=== PATIENT | male | born 1960 | race Caucasian/White ===

== ENCOUNTER 2021-02-28 07:29 | Observation (INO) ==
[~2021-02-28 07:29] MED LIST: CYTARABINE IVPB SCH; Enoxaparin 40 MG/0.4 ML SYR SUBCUT SCH; METHYLPREDNISOLONE IV SCH; NS 0.9% IV SCH; NS 0.9% IVPB SCH; Ondansetron 4 mg VIAL 2 MG/ML 2 ml VIAL IV PRN; Prochlorperazine 5 mg/ml 2 ml VIAL (10 mg) IV PRN
[2021-02-28] MEDS ORDERED: DEXAMETHASONE 0.1% BOTH EYES SCH (12:00)
[2021-02-28] MEDS ORDERED: OPTH BOTH EYES SCH (12:00)
[2021-02-28] MEDS: prednisoLONE 1% OPHTH.SUSP 5 ML OPHTH.SUSP BOTH EYES SCH ×2 (15:02→17:50)
[2021-02-28] MEDS: DEXAMETHASONE SODIUM PHOSPHATE BOTH EYES SCH ×2 (15:02→17:50)
[2021-02-28] MEDS ORDERED: CYTARABINE IVPB ONE (20:00)
[2021-02-28] MEDS ORDERED: NS 0.9% IVPB ONE (20:00)
[2021-02-28] MEDS ORDERED: Enoxaparin 40 MG/0.4 ML SYR SUBCUT SCH (21:00)
[2021-02-28] MEDS: OPTH BOTH EYES SCH (23:55)
[2021-02-28] MEDS: DEXAMETHASONE 0.1% BOTH EYES SCH (23:55)
[2021-03-01 01:10] LABS: Hematocrit 29 % (42-52); Hemoglobin 9.9 g/dL (14.0-18.0); Mean Corpuscular HGB Conc 35 g/dL (31-36); Mean Corpuscular Hemoglobin 31 pg (27-31); Mean Corpuscular Volume 90 fL (80-94); Platelet Count 273 10^3/uL (150-450); Red Cell Distribution Width 13 % (10-15); White Blood Count 24.3 10^3/uL (3.5-10.8)
[2021-03-01 01:50] LABS: ABS Lymphocytes 0.1 10^3/ul (1.0-4.8); ABS Monocytes 0.3 10^3/ul (0-0.8); ABS Neutrophils 23.8 10^3/ul (1.5-7.7); Lymphocyte % 0.6 %
[2021-03-01 02:28] LABS: Calcium 8.4 mg/dL (8.6-10.3); EGFR African American 85.7 (>60); EGFR Non-African American 70.8 (>60); Magnesium 1.8 mg/dL (1.9-2.7); Potassium 4.1 mmol/L (3.5-5.0)
[2021-03-01] MEDS: DEXAMETHASONE 0.1% BOTH EYES SCH ×2 (05:57→12:43)
[2021-03-01] MEDS: OPTH BOTH EYES SCH ×2 (05:57→12:43)
[2021-03-01 06:32] LABS: Albumin 3.5 g/dL (3.2-5.2); Albumin/Globulin Ratio 1.8 (1-3); Calcium 8.2 mg/dL (8.6-10.3); EGFR African American 82.9 (>60); EGFR Non-African American 68.5 (>60); Potassium 4.2 mmol/L (3.5-5.0); Total Bilirubin 0.4 mg/dL (0.2-1.0); Total Protein 5.5 g/dL (6.4-8.9)
[2021-03-01] MEDS ORDERED: MULTIVITAMINS PO SCH (09:00)
[2021-03-01] MEDS ORDERED: NS 0.9% IV ONE (09:00)
[2021-03-01] MEDS ORDERED: CHOLECALCIFEROL 1000 UNIT PO SCH (09:00)
[2021-03-01] MEDS ORDERED: METHYLPREDNISOLONE IV ONE (09:00)
[2021-03-01] MEDS ORDERED: MAGNESIUM PO SCH (09:00)
[2021-03-01] MEDS ORDERED: TURMERIC PO ONE (09:00)
[2021-03-01] MEDS ORDERED: VALACYCLOVIR 500 MG PO SCH (09:00)
[2021-03-01] MEDS ORDERED: Sulfamethox/Trimethoprim DS TAB 800/160 mg PO SCH (09:00)
[2021-03-01] MEDS ORDERED: MINERALS PO SCH (09:00)
[2021-03-01] MEDS ORDERED: CALCIUM PO SCH (09:00)
[2021-03-01] MEDS ORDERED: MAGNESIUM CITRATE 150 MG PO SCH (09:00)
[2021-03-01] MEDS ORDERED: ZINC PO SCH (09:00)
[2021-03-01] MEDS: CMCS:Febuxostat 40 mg TAB (NF) PO SCH ×2 (09:02→09:06)
[2021-03-01 11:18] VITALS: BP 109/63
[2021-03-01 13:19] LABS: Magnesium 2.2 mg/dL (1.9-2.7)
[2021-03-01 13:32] LABS: TSH Ultra Thyroid Stim Horm 0.81 mcIU/mL (0.34-5.60)
== END 2021-03-01 16:57 | disposition home or self-care (01) ==
LOC: SSU 07:29 → CHOA 07:29
PROVIDERS: ADMIT Internal Medicine Hematology & Oncology; ATTEND Internal Medicine Hematology & Oncology

== ENCOUNTER 2021-03-20 12:40 | Observation (INO) ==
[2021-03-20] MEDS: DEXAMETHASONE 0.1% BOTH EYES SCH ×2 (16:57→21:26)
[2021-03-20] MEDS: OPTH BOTH EYES SCH ×2 (16:57→21:26)
[2021-03-20] MEDS ORDERED: CYTARABINE IVPB ONE (20:00)
[2021-03-20] MEDS ORDERED: NS 0.9% IVPB ONE (20:00)
[2021-03-20] MEDS ORDERED: Sulfamethox/Trimethoprim DS TAB 800/160 mg PO SCH (21:00)
[2021-03-21] MEDS ORDERED: methylPREDNISolone 125 mg 2 ML VIAL ONE (07:42)
[2021-03-21] MEDS: OPTH BOTH EYES SCH (07:53)
[2021-03-21] MEDS: DEXAMETHASONE 0.1% BOTH EYES SCH (07:53)
[2021-03-21] MEDS ORDERED: NS 0.9% IV ONE (08:00)
[2021-03-21] MEDS ORDERED: METHYLPREDNISOLONE IV ONE (08:00)
[2021-03-21 09:33] VITALS: BP 93/60
== END 2021-03-21 10:58 | disposition home or self-care (01) ==
LOC: INTOOBSV 12:40 → SSU 12:40
PROVIDERS: ADMIT Internal Medicine Hematology & Oncology; ATTEND Internal Medicine Hematology & Oncology

== ENCOUNTER 2021-04-10 07:41 | Observation (INO) ==
[~2021-04-10 07:41] MED LIST changes: -Enoxaparin 40 MG/0.4 ML SYR SUBCUT SCH; -Ondansetron 4 mg VIAL 2 MG/ML 2 ml VIAL IV PRN; -Prochlorperazine 5 mg/ml 2 ml VIAL (10 mg) IV PRN
[2021-04-10] MEDS: OPTH BOTH EYES SCH ×2 (18:00→23:45)
[2021-04-10] MEDS: DEXAMETHASONE 0.1% BOTH EYES SCH ×2 (18:00→23:45)
[2021-04-10] MEDS ORDERED: CYTARABINE IVPB ONE (20:00)
[2021-04-10] MEDS ORDERED: NS 0.9% IVPB ONE (20:00)
[2021-04-10] MEDS: PREDNISOLONE 0.12% BOTH EYES SCH (23:00)
[2021-04-10] MEDS ORDERED: Sulfamethox/Trimethoprim DS TAB 800/160 mg PO SCH (23:30)
[2021-04-11 06:02] LABS: ABS Lymphocytes 0.1 10^3/ul (1.0-4.8); ABS Monocytes 0.2 10^3/ul (0-0.8); ABS Neutrophils 18.1 10^3/ul (1.5-7.7); Hematocrit 27 % (42-52); Hemoglobin 9.3 g/dL (14.0-18.0); Lymphocyte % 0.5 %; Mean Corpuscular HGB Conc 34 g/dL (31-36); Mean Corpuscular Hemoglobin 33 pg (27-31); Mean Corpuscular Volume 97 fL (80-94); Mean Platelet Volume 8.7 fL (7.4-10.4); Platelet Count 189 10^3/uL (150-450); Red Cell Distribution Width 23 % (10-15); White Blood Count 18.4 10^3/uL (3.5-10.8)
[2021-04-11 06:26] LABS: Albumin 3.6 g/dL (3.2-5.2); Albumin/Globulin Ratio 1.9 (1-3); Calcium 8.4 mg/dL (8.6-10.3); Globulin 1.9 g/dL (2-4); Total Bilirubin 0.4 mg/dL (0.2-1.0); Total Protein 5.5 g/dL (6.4-8.9)
[2021-04-11] MEDS ORDERED: METHYLPREDNISOLONE IV ONE (08:00)
[2021-04-11] MEDS ORDERED: NS 0.9% IV ONE (08:00)
[2021-04-11] MEDS: DEXAMETHASONE 0.1% BOTH EYES SCH (09:42)
[2021-04-11] MEDS: OPTH BOTH EYES SCH (09:42)
[2021-04-11 10:21] VITALS: BP 106/55
[2021-04-11] MEDS ORDERED: Ondansetron ODT 4 mg TAB 4 MG TAB SL ONE (10:21)
== END 2021-04-11 12:27 | disposition home or self-care (01) ==
LOC: MEDTELE 07:41 → CHOA 07:41
PROVIDERS: ADMIT Internal Medicine Hematology & Oncology; ATTEND Internal Medicine Hematology & Oncology

== ENCOUNTER 2022-02-12 16:20 | Inpatient (IN) ==
[2022-02-12 17:26] LABS: Hematocrit 21 % (42-52); Hemoglobin 7.5 g/dL (14.0-18.0); Mean Corpuscular HGB Conc 35 g/dL (31-36); Mean Corpuscular Hemoglobin 35 pg (27-31); Mean Corpuscular Volume 101 fL (80-94); Mean Platelet Volume 9.7 fL (7.4-10.4); Platelet Count 28 10^3/uL (150-450); Red Blood Count 2.11 10^6 /uL (4.18-5.48); Red Cell Distribution Width 17 % (10-15); White Blood Count 0.2 10^3/uL (3.5-10.8)
[2022-02-12 17:36] LABS: Activated Partial Thrombo Time 28.3 seconds (26.0-38.0); INR 1.06 (0.89-1.11)
[2022-02-12 17:38] LABS: Urine Appearance Clear; Urine Bilirubin Negative (Negative); Urine Blood Negative (Negative); Urine Color Yellow; Urine Glucose Negative (Negative); Urine Ketones Negative (Negative); Urine Nitrite Negative (Negative); Urine Protein Negative (Negative); Urine Specific Gravity 1.015 (1.005-1.030); Urine Urobilinogen 0.2 (Negative) (Negative); Urine pH 6.5 (5.0-9.0)
[2022-02-12 17:40] LABS: ABS Monocytes 0.1 10^3/ul (0-0.8); Eosinophil % 1.1 %; Lymphocyte % 11.5 %; Nucleated Red Blood Cells % 0.9
[2022-02-12 17:42] LABS: Albumin 3.9 g/dL (3.2-5.2); Albumin/Globulin Ratio 2.3 (1-3); C Reactive Protein 35.42 mg/L (<8.01); Calcium 8.7 mg/dL (8.6-10.3); Globulin 1.7 g/dL (2-4); Potassium 3.9 mmol/L (3.5-5.0); Total Bilirubin 0.7 mg/dL (0.2-1.0); Total Protein 5.6 g/dL (6.4-8.9); eGFR CKD-EPI 100.2 (>60)
[2022-02-12] MEDS ORDERED: Cefepime 2 GM in Dextrose 2 GM/50 ML BAG IV ONE (18:22)
[2022-02-12] MEDS ORDERED: Vancomycin 1,000 MG VIAL IVPB SCH (19:00)
[2022-02-12] MEDS ORDERED: Vancomycin 1500 MG IV - x ONCE IVPB ONE (19:00)
[2022-02-12 19:13] LABS: High Sensitivity Troponin 1 Hr 11 pg/mL (<20)
[2022-02-12] MEDS ORDERED: Cefepime ADVAN 1 GM in NS 0.9% 50 ML 50 ML IVPB SCH (23:45)
[2022-02-13] MEDS ORDERED: Vancomycin per Pharmacy 1 EA NOTE FOLLOW UP SCH (07:00)
[2022-02-13] MEDS ORDERED: Cefepime 1 GM in Dextrose 1 GM/50 ML BAG IV SCH (07:30)
[2022-02-13] MEDS ORDERED: Vancomycin 1000 MG in NS 0.9% 250 ML IVPB SCH (08:00)
[2022-02-13] MEDS: Cefepime 2 GM in Dextrose 2 GM/50 ML BAG IV SCH ×3 (09:03→21:21)
[2022-02-13] MEDS: Vancomycin 1,500 MG in NS 0.9% 250 ml 250 ML IVPB SCH ×2 (09:03→20:00)
[2022-02-13] MEDS ORDERED: Sulfamethox/Trimethoprim DS TAB 800/160 mg PO SCH (12:00)
[2022-02-13] MEDS ORDERED: Sulfamethox/Trimethoprim DS TAB 800/160 mg ONE (12:39)
[2022-02-14] MEDS: Cefepime 2 GM in Dextrose 2 GM/50 ML BAG IV SCH (06:05)
[2022-02-14] MEDS ORDERED: Vancomycin Trough Check NOTE FOLLOW UP ONE (07:30)
[2022-02-14] MEDS ORDERED: LACTOBACILLUS ACIDOPHILUS PO SCH (09:00)
[2022-02-14] MEDS ORDERED: BILLION CELL PO SCH (09:00)
[2022-02-14] MEDS: Vancomycin 1,500 MG in NS 0.9% 250 ml 250 ML IVPB SCH (09:53)
[2022-02-14 10:47] LABS: ABS Monocytes 0.2 10^3/ul (0-0.8); ABS Neutrophils 0.2 10^3/ul (1.5-7.7); Eosinophil % 0.1 %; Hematocrit 20 % (42-52); Hemoglobin 6.9 g/dL (14.0-18.0); Lymphocyte % 8.1 %; Mean Corpuscular HGB Conc 35 g/dL (31-36); Mean Corpuscular Hemoglobin 36 pg (27-31); Mean Corpuscular Volume 102 fL (80-94); Mean Platelet Volume 10.2 fL (7.4-10.4); Platelet Count 28 10^3/uL (150-450); Red Blood Count 1.92 10^6 /uL (4.18-5.48); Red Cell Distribution Width 18 % (10-15); White Blood Count 0.4 10^3/uL (3.5-10.8)
[2022-02-14 17:34] VITALS: BP 104/54
[2022-02-14] MEDS ORDERED: Sulfamethox/Trimethoprim DS TAB 800/160 mg PO SCH (22:00)
== END 2022-02-14 16:34 | disposition home or self-care (01) | DRG 660 ==
LOC: ED 16:20 → MEDTELE 02-13 06:21 → SUATTDRO 02-13 07:05 → MEDTELE 02-13 07:05
PROVIDERS: ADMIT Internal Medicine; ATTEND Student in an Organized Health Care Education/Training Program

== ENCOUNTER 2023-01-16 17:18 | Inpatient (IN) ==
[2023-01-16 17:47] LABS: ABS Lymphocytes 1.1 10^3/uL (1.0-4.8); ABS Monocytes 0.6 10^3/uL (0.0-1.1); ABS Neutrophils 3.5 10^3/uL (1.5-7.6); Eosinophil % 0.7 %; Hematocrit 30.4 % (38-53); Hemoglobin 10.9 g/dL (13.2-16.3); Lymphocyte % 20.8 %; Mean Corpuscular Hemoglobin 37.4 pg (27-33); Mean Corpuscular Hgb Conc 35.9 g/dL (31-36); Mean Corpuscular Volume 104.3 fL (80-97); Mean Platelet Volume 8.2 fL (7.5-11.2); Nucleated Red Blood Cells % 0.1 /100 WBC (0.0-0.4); Platelet Count 100 10^3/uL (150-450); Red Blood Count 2.91 10^6/uL (4.06-5.63); Red Cell Distribution Width 14.7 % (12-17); White Blood Count 5.2 10^3/uL (3.6-10.2)
[2023-01-16 18:02] LABS: INR 1.04 (0.88-1.18)
[2023-01-16 18:14] LABS: Albumin 4.5 g/dL (3.2-5.2); Albumin/Globulin Ratio 2.6 (1-3); Calcium 9.7 mg/dL (8.6-10.3); Creatinine, Serum 1.07 mg/dL (0.67-1.17); Globulin 1.7 g/dL (2-4); Potassium 4.6 mmol/L (3.5-5.0); Total Bilirubin 0.3 mg/dL (0.2-1.0); Total Protein 6.2 g/dL (6.4-8.9); eGFR CKD-EPI 77.5 (>60)
[2023-01-16 19:43] LABS: High Sensitivity Troponin 1 Hr 3078 pg/mL (<20)
[2023-01-16] MEDS ORDERED: Iohexol 350 (CONTRAST) 500 ML MDV IV ONE (19:44)
[2023-01-16 20:52] LABS: Creatinine, Serum 0.91 mg/dL (0.67-1.17); eGFR CKD-EPI 94.1 (>60)
[2023-01-16] MEDS: Heparin 5000 UNITS/ML 1 mL VIAL IV SCH (21:02)
[2023-01-16] MEDS: Heparin DRIP 25,000 UNITS BAG 25,000 UNITS/500 ML BAG IV SCH (21:04)
[2023-01-16] MEDS ORDERED: fentaNYL 100 mcg/2 ml 50 MCG/ML VIAL IV SLOW PU ONE (22:01)
[2023-01-16] MEDS ORDERED: Midazolam 10 mg/10 ml VIAL 1 mg/ml 10 ml VIAL (10 mg) IV SLOW PU ONE (22:01)
[2023-01-16] MEDS ORDERED: fentaNYL 100 mcg/2 ml 50 MCG/ML VIAL ONE (22:25)
[2023-01-16] MEDS ORDERED: Heparin 2 UNITS/ML 1000 mls 2,000 ML IV ONE (22:25)
[2023-01-16] MEDS ORDERED: Midazolam 5 mg/5 ml VIAL 1 mg/ml 5 ml VIAL (5 mg) ONE (22:25)
[2023-01-16] MEDS ORDERED: VERAPAMIL 2.5 MG/ML 2 ML VIAL ** 5 mg/2 ml ONE (22:25)
[2023-01-16] MEDS ORDERED: Heparin 1,000 UNIT/ML 10 ml (10,000 UNITS) CATHLAB/DIALYSIS ONE (22:25)
[2023-01-16] MEDS ORDERED: Iohexol 350 (CONTRAST) 100 ML PAK IV ONE (22:26)
[2023-01-16] MEDS ORDERED: Lidocaine 1% MPF 5 ML VIAL ONE (22:26)
[2023-01-16] MEDS ORDERED: nitroGLYCERIN DRIP 25,000 MCG/250 ML BTL ONE (22:26)
[2023-01-16] MEDS ORDERED: Iohexol 350 (CONTRAST) 200 ML MDV IV ONE (22:27)
[2023-01-17] MEDS: MAGNESIUM CITRATE PO SCH ×2 (02:48→20:08)
[2023-01-17] MEDS: PROTEIN PO SCH ×3 (02:48→20:08)
[2023-01-17] MEDS: VITAMIN B COMPLEX PO SCH ×2 (02:49→20:06)
[2023-01-17] MEDS: Multivitamins/Minerals TAB PO SCH ×2 (02:51→20:07)
[2023-01-17 03:31] LABS: ABS Lymphocytes 0.8 10^3/uL (1.0-4.8); ABS Monocytes 0.4 10^3/uL (0.0-1.1); ABS Nucleated RBC 0.01 10^3/ul; Eosinophil % 0.9 %; Hematocrit 25.7 % (38-53); Hemoglobin 9.2 g/dL (13.2-16.3); Lymphocyte % 19.6 %; Mean Corpuscular Hemoglobin 37.1 pg (27-33); Mean Corpuscular Hgb Conc 35.9 g/dL (31-36); Mean Corpuscular Volume 103.4 fL (80-97); Mean Platelet Volume 8.2 fL (7.5-11.2); Nucleated Red Blood Cells % 0.3 /100 WBC (0.0-0.4); Platelet Count 82 10^3/uL (150-450); Red Blood Count 2.48 10^6/uL (4.06-5.63); Red Cell Distribution Width 14.7 % (12-17); White Blood Count 4.3 10^3/uL (3.6-10.2)
[2023-01-17 06:46] LABS: Albumin 3.4 g/dL (3.2-5.2); Albumin/Globulin Ratio 2.6 (1-3); Calcium 8.8 mg/dL (8.6-10.3); Creatinine, Serum 0.93 mg/dL (0.67-1.17); Globulin 1.3 g/dL (2-4); Potassium 3.9 mmol/L (3.5-5.0); Total Bilirubin 0.4 mg/dL (0.2-1.0); Total Protein 4.7 g/dL (6.4-8.9); eGFR CKD-EPI 91.7 (>60)
[2023-01-17] MEDS ORDERED: NS 0.9% 1000 ml BAG 1,000 ML IV SCH (08:00)
[2023-01-17] MEDS: Cholecalciferol (VIT D3) 1,000 unit TAB PO SCH (09:48)
[2023-01-17] MEDS ORDERED: Ondansetron 4 mg VIAL 2 MG/ML 2 ml VIAL IV PRN (10:34)
[2023-01-17] MEDS ORDERED: Morphine 4 MG/ML VIAL (1 ml) IV PRN (10:34)
[2023-01-17] MEDS ORDERED: nitroGLYCERIN DRIP 25,000 MCG/250 ML BTL IV SCH (12:00)
[2023-01-17 13:24] LABS: Magnesium 1.7 mg/dL (1.9-2.7)
[2023-01-17] MEDS: Heparin 5000 UNITS/ML 1 mL VIAL IV SCH (19:03)
[2023-01-17] MEDS ORDERED: LACTATED RINGERS IV SCH (22:00)
[2023-01-17] MEDS ORDERED: Lactated Ringers 1000 ml BAG 1,000 ML IV SCH (22:00)
[2023-01-17] MEDS ORDERED: Lactated Ringers 1000 ml BAG 500 ML IV SCH (23:45)
[2023-01-18] MEDS: Heparin DRIP 25,000 UNITS BAG 25,000 UNITS/500 ML BAG IV SCH (02:16)
[2023-01-18 05:14] LABS: Calcium 8.4 mg/dL (8.6-10.3); Creatinine, Serum 0.99 mg/dL (0.67-1.17); Magnesium 1.7 mg/dL (1.9-2.7); Potassium 4.1 mmol/L (3.5-5.0); eGFR CKD-EPI 85.1 (>60)
[2023-01-18 05:35] LABS: ABS Lymphocytes 0.7 10^3/uL (1.0-4.8); ABS Monocytes 0.5 10^3/uL (0.0-1.1); ABS Neutrophils 2.9 10^3/uL (1.5-7.6); Eosinophil % 0.5 %; Hematocrit 25.2 % (38-53); Lymphocyte % 17.3 %; Mean Corpuscular Hemoglobin 37.3 pg (27-33); Mean Corpuscular Hgb Conc 35.7 g/dL (31-36); Mean Corpuscular Volume 104.3 fL (80-97); Mean Platelet Volume 8.7 fL (7.5-11.2); Platelet Count 75 10^3/uL (150-450); Red Blood Count 2.41 10^6/uL (4.06-5.63); Red Cell Distribution Width 14.8 % (12-17); White Blood Count 4.2 10^3/uL (3.6-10.2)
[2023-01-18] MEDS: Cholecalciferol (VIT D3) 1,000 unit TAB PO SCH (08:14)
[2023-01-18] MEDS: PROTEIN PO SCH ×4 (08:25→21:45)
[2023-01-18] MEDS: MAGNESIUM CITRATE PO SCH (19:34)
[2023-01-18] MEDS: Multivitamins/Minerals TAB PO SCH (22:39)
[2023-01-18] MEDS: VITAMIN B COMPLEX PO SCH (23:35)
[2023-01-19] MEDS: Heparin DRIP 25,000 UNITS BAG 25,000 UNITS/500 ML BAG IV SCH (01:04)
[2023-01-19 05:16] LABS: ABS Lymphocytes 0.6 10^3/uL (1.0-4.8); ABS Monocytes 0.5 10^3/uL (0.0-1.1); ABS Neutrophils 2.7 10^3/uL (1.5-7.6); Eosinophil % 0.6 %; Hematocrit 24.4 % (38-53); Hemoglobin 8.6 g/dL (13.2-16.3); Lymphocyte % 16.8 %; Mean Corpuscular Hemoglobin 37.4 pg (27-33); Mean Corpuscular Hgb Conc 35.5 g/dL (31-36); Mean Corpuscular Volume 105.5 fL (80-97); Mean Platelet Volume 8.1 fL (7.5-11.2); Platelet Count 71 10^3/uL (150-450); Red Blood Count 2.31 10^6/uL (4.06-5.63); Red Cell Distribution Width 14.4 % (12-17); White Blood Count 3.9 10^3/uL (3.6-10.2)
[2023-01-19 05:29] LABS: Calcium 8.5 mg/dL (8.6-10.3); Creatinine, Serum 0.86 mg/dL (0.67-1.17); Magnesium 1.8 mg/dL (1.9-2.7); Potassium 4.1 mmol/L (3.5-5.0); eGFR CKD-EPI 96.7 (>60)
[2023-01-19] MEDS: Cholecalciferol (VIT D3) 1,000 unit TAB PO SCH (08:16)
[2023-01-19] MEDS: PROTEIN PO SCH (08:28)
[2023-01-19] MEDS ORDERED: Magnesium Sulfate 2 gm BAG 2 GM/50 ML BAG IVPB ONE (09:30)
[2023-01-19] MEDS: Multivitamins/Minerals TAB PO SCH (20:04)
[2023-01-19 20:47] VITALS: BP 101/59
== END 2023-01-19 21:15 | disposition short-term general hospital (02) | DRG 190 ==
LOC: ED 17:18 → CHICATH 22:58 → ICU 23:46
PROVIDERS: ADMIT Specialist; ATTEND Student in an Organized Health Care Education/Training Program